=== PATIENT | female | born 1955 | race African-American/Black ===

== ENCOUNTER 2019-01-05 10:57 | Day surgery (SDC) | payer MEDICAID, OTHER ==
[~2019-01-05] VITALS: Ht 162.6 cm; Wt 90.7 kg
[~2019-01-05 10:57] MED LIST: BENZ200C52 PO; BIMA2.5D4 OP; HEPARIN SODIUM 1,000 UNIT/1ML VIAL IV ONE; HYDR25TA PO; HYDR50CA5 PO; NAPR-681 PO
[2019-01-05] MEDS ORDERED: IOHEXOL-300 100 ML BOTTLE ONE (12:51)
[2019-01-05] MEDS ORDERED: LIDOCAINE HCL 1% 20ML VIAL (Pyxis) INJ ONE (12:52)
[2019-01-05 13:01] LABS: BASOPHILS % 0.6 % (0.0-2.0); EOSINOPHILS % 2.3 % (0.0-5.0); HEMATOCRIT. 41.3 % (36.0-48.0); HEMOGLOBIN. 13.6 g/dL (12.0-16.0); LYMPHOCYTES % 34.1 % (20.0-50.0); MEAN CORPUSCULAR HEMOGLOBIN 29.6 pg (28.0-32.0); MEAN CORPUSCULAR VOLUME 89.7 fL (81.0-99.0); MEAN PLATELET VOLUME 9.3 fl (7.4-10.4); MONOCYTES % 7.6 % (2.0-8.0); NEUTROPHILS % 55.4 % (40.0-76.0); PLATELET 270 x1000/uL (130-400); RED CELL DISTRIBUTION WIDTH 13.8 % (11.6-14.6)
[2019-01-05 13:08] LABS: CHLORIDE 107 mEq/L (98-107)
[2019-01-05 13:10] LABS: PARTIAL THROMBOPLASTIN TIME 27.5 sec (23.4-31.0)
[2019-01-05] MEDS ORDERED: FENTANYL CITRATE/PF 50MCG/ML 2ML VIAL ONE ×2 (13:11→13:51)
[2019-01-05] MEDS ORDERED: MIDAZOLAM HCL 2 MG/2 ML VIAL ONE (13:11)
[2019-01-05] MEDS ORDERED: KCL 10MEQ/50ML PREMIX 50 ML IV ONE (13:20)
[2019-01-05] MEDS ORDERED: CHOL500010 PO (13:29)
[2019-01-05] MEDS ORDERED: CLOP75TA16 PO (13:29)
[2019-01-05] MEDS ORDERED: LOSA50TA20 PO (13:29)
[2019-01-05] MEDS ORDERED: HYDR12.529 PO (13:29)
[2019-01-05] MEDS ORDERED: METO-385 PO (13:29)
[2019-01-05] MEDS ORDERED: ASPI-1159 PO (13:29)
[2019-01-05] MEDS ORDERED: CHOL500051 PO (13:29)
[2019-01-05] MEDS ORDERED: POTASSIUM CHLORIDE 20MEQ TABLET SR PO NR (14:30)
== END 2019-01-05 20:00 | disposition home or self-care (01) ==
LOC: CCL 10:57
PROVIDERS: ATTEND Specialist
DX: I25.10 Atherosclerotic heart disease of native coronary artery without angina pectoris (principal); I10 Essential (primary) hypertension; F17.210 Nicotine dependence, cigarettes, uncomplicated; M17.0 Bilateral primary osteoarthritis of knee; F12.90 Cannabis use, unspecified, uncomplicated; Z98.51 Tubal ligation status; Z79.82 Long term (current) use of aspirin; Z96.659 Presence of unspecified artificial knee joint; Z88.5 Allergy status to narcotic agent; Z79.899 Other long term (current) drug therapy; Z79.01 Long term (current) use of anticoagulants
CPT/HCPCS: 36415; 80048; 85025; 85610; 85730; 93454; C1760; C1769; C1887; C1893; J1644; J2250; J3010; J3480; J3490; Q9967